=== PATIENT | male | born 1935 | race Caucasian/White ===

== ENCOUNTER 2019-11-09 15:46 | Inpatient (IN) | payer MEDICARE ==
[~2019-11-09] VITALS: Ht 175.3 cm; Wt 93.4 kg
[2019-11-09] MEDS ORDERED: MORPHINE SULFATE 4 MG/ML, 1ML IVPush PRN (16:00)
[2019-11-09] MEDS ORDERED: SODIUM CHLORIDE FLUSH 10ML SYR IVF ONE (16:00)
[2019-11-09] MEDS ORDERED: ONDANSETRON 2MG/ML, 2ML IVPush ONE (16:00)
[2019-11-09] MEDS ORDERED: LIDOCAINE 2%,20 ML JEL.PF.APP MM ONE (16:04)
[2019-11-09] MEDS ORDERED: ONDANSETRON 2MG/ML, 2ML ONE (16:05)
[2019-11-09] MEDS ORDERED: MORPHINE SULFATE 4 MG/ML, 1ML ONE ×2 (16:05→16:31)
[2019-11-09 16:19] LABS: BASOPHILS # (AUTO) 0.04 x10^3/uL (0-0.1); BASOPHILS % (AUTO) 0 % (0-1); EOSINOPHILS % (AUTO) 1 % (1-7); LYMPHOCYTES # (AUTO) 1.26 x10^3/uL (1-3.4); LYMPHOCYTES % (AUTO) 12 % (22-44); MD NO; MEAN CORPUSCULAR HEMOGLOBIN 30.6 pg (27.5-34.5); MEAN CORPUSCULAR HGB CONC 33.2 g/dL (33.2-36.2); MEAN CORPUSCULAR VOLUME 92.3 fL (81-97); MEAN PLATELET VOLUME 9.5 fL (7.4-10.4); MONOCYTES # (AUTO) 1.26 x10^3/uL (0.2-0.8); MONOCYTES % (AUTO) 12 % (2-9); NEUTROPHILS # (AUTO) 8.34 x10^3/uL (1.8-6.8); NEUTROPHILS % (AUTO) 76 % (42-75); PLATELET COUNT 154 x10^3/uL (130-400); RED BLOOD COUNT 3.99 x10^6/uL (4.38-5.82); RED CELL DISTRIBUTION WIDTH 13.3 % (9.4-14.8)
[2019-11-09 16:31] LABS: ALANINE AMINOTRANSFERASE 14 U/L (12-78); ALBUMIN 3.1 g/dL (3.4-5.0); ANION GAP 7 mmol/L (5-15); CALCIUM 7.1 mg/dL (8.5-10.1); CHLORIDE 109 mmol/L (98-107); CREATININE 1.66 mg/dL (0.7-1.3)
[2019-11-09 16:34] LABS: ALKALINE PHOSPHATASE 61 U/L (45-117); BILIRUBIN,TOTAL 0.7 mg/dL (0.2-1.0); TOTAL PROTEIN 7.4 g/dL (6.4-8.2)
[2019-11-09 17:03] LABS: MICROSCOPIC AUTO
[2019-11-09] MEDS ORDERED: HYDR-3246 PO (17:04)
[2019-11-09] MEDS ORDERED: LUBI24CA7 PO (17:05)
[2019-11-09] MEDS ORDERED: AMLO10TA8 PO (17:07)
[2019-11-09] MEDS ORDERED: CALC0.25 PO (17:08)
[2019-11-09] MEDS ORDERED: CITA10TA8 PO (17:12)
[2019-11-09] MEDS ORDERED: CALC600T23 PO (17:12)
[2019-11-09] MEDS ORDERED: DOCU60SY5 PO (17:13)
[2019-11-09] MEDS ORDERED: LINA290C PO (17:15)
[2019-11-09] MEDS ORDERED: NALO25TA PO (17:15)
[2019-11-09] MEDS ORDERED: LINACLOTIDE HOMEMEDPO PRN (17:30)
[2019-11-09] MEDS ORDERED: SODIUM CHLORIDE FLUSH 10ML SYR IVF PRN (17:30)
[2019-11-09] MEDS ORDERED: LUBIPROSTONE 24 MCG CAPSULE PO PRN (17:30)
--- NOTE | 2019-11-09 17:45 | NUR ---
LUIS EDUARDO LUEVANO, , IS PATIENT'S SON AND POWER OF CASE CHECKER, AND WISHES TO BE KEPT INFORMED.
[2019-11-09] MEDS ORDERED: hydrALAzine 20 MG/ML, 1ML IVPush PRN (18:00)
[2019-11-09] MEDS ORDERED: DIPHENHYDRAMINE 50 MG CAPSULE PO PRN (18:00)
[2019-11-09] MEDS ORDERED: ONDANSETRON 2MG/ML, 2ML IVPush PRN (18:00)
[2019-11-09] MEDS ORDERED: POLYETHYLENE GLYCOL 17 GM PACKET PO PRN (18:00)
[2019-11-09] MEDS ORDERED: BISACODYL 10 MG SUPP PR PRN (18:00)
[2019-11-09] MEDS ORDERED: ACETAMINOPHEN 325 MG TABLET PO PRN (18:00)
[2019-11-09] MEDS ORDERED: PROMETHAZINE 25 MG/ML, 1ML IM PRN (18:00)
[2019-11-09] MEDS ORDERED: MELATONIN 5 MG TABLET PO PRN (18:00)
--- NOTE | 2019-11-09 18:04 | NUR ---
[facility] HAND-OFF REPORT GIVEN TO BAL FOURNIER. PATIENT READY TO GO TO HOSPITAL ROOM.
[2019-11-09 19:08] VITALS: BP 155/81
[2019-11-09] MEDS: LUBIPROSTONE MC SCH (19:30)
[2019-11-09] MEDS: LINACLOTIDE MC SCH (19:30)
[2019-11-09] MEDS: NALOXEGOL MC SCH (19:30)
[2019-11-09] MEDS: DOCUSATE 100 MG CAPSULE PO SCH (20:04)
[2019-11-09] MEDS: CALCITRIOL 0.25 MCG CAPSULE PO SCH (20:04)
[2019-11-09] MEDS: TEMPLATE NON-FORMULARY MED. (Naloxegol Oxalate (Movantik) 25 MG) HOMEMEDPO SCH (21:00)
[2019-11-10 00:57] VITALS: BP 163/72
[2019-11-10] MEDS: HYDROmorphone 2 MG/ML, 1ML IVPush PRN ×5 (01:09→20:11)
[2019-11-10] MEDS: LACTATED RINGERS 1,000 ML IV SCH (01:56)
[2019-11-10] MEDS: LINACLOTIDE MC SCH ×3 (03:30→19:30)
[2019-11-10] MEDS: LUBIPROSTONE MC SCH ×3 (03:30→19:30)
[2019-11-10] MEDS: NALOXEGOL MC SCH ×3 (03:30→19:30)
[2019-11-10 04:32] LABS: BASOPHILS # (AUTO) 0.02 x10^3/uL (0-0.1); BASOPHILS % (AUTO) 0 % (0-1); EOSINOPHILS # (AUTO) 0.07 x10^3/uL (0-0.4); EOSINOPHILS % (AUTO) 1 % (1-7); LYMPHOCYTES # (AUTO) 1.14 x10^3/uL (1-3.4); LYMPHOCYTES % (AUTO) 11 % (22-44); MD NO; MEAN CORPUSCULAR HEMOGLOBIN 30.2 pg (27.5-34.5); MEAN CORPUSCULAR HGB CONC 32.6 g/dL (33.2-36.2); MEAN CORPUSCULAR VOLUME 92.7 fL (81-97); MEAN PLATELET VOLUME 9.6 fL (7.4-10.4); MONOCYTES % (AUTO) 11 % (2-9); NEUTROPHILS % (AUTO) 77 % (42-75); PLATELET COUNT 159 x10^3/uL (130-400); RED BLOOD COUNT 3.83 x10^6/uL (4.38-5.82); RED CELL DISTRIBUTION WIDTH 13.3 % (9.4-14.8)
[2019-11-10 04:40] LABS: ANION GAP 7 mmol/L (5-15); CALCIUM 6.7 mg/dL (8.5-10.1); CHLORIDE 109 mmol/L (98-107)
[2019-11-10 04:41] LABS: CREATININE 1.66 mg/dL (0.7-1.3)
[2019-11-10] MEDS: CEFTRIAXONE PMX 1GM/50ML 50 ML IV SCH (06:37)
[2019-11-10 06:57] VITALS: BP 147/64
[2019-11-10] MEDS: CITALOPRAM 10 MG TABLET PO SCH (09:00)
[2019-11-10] MEDS: CALCITRIOL 0.25 MCG CAPSULE PO SCH ×2 (09:00→20:11)
[2019-11-10] MEDS: DOCUSATE 100 MG CAPSULE PO SCH ×2 (09:00→20:13)
[2019-11-10] MEDS: SENNA/DOCUSATE TABLET PO SCH (09:00)
[2019-11-10] MEDS: TEMPLATE NON-FORMULARY MED. (Naloxegol Oxalate (Movantik) 25 MG) HOMEMEDPO SCH ×2 (09:00→20:14)
[2019-11-10] MEDS: AMLODIPINE 10 MG TAB PO SCH (09:00)
[2019-11-10] MEDS ORDERED: CHLORHEXIDINE 15 ML UDC ONE (12:22)
[2019-11-10] MEDS ORDERED: CHLORHEXIDINE 15 ML UDC MM STA (12:24)
[2019-11-10] MEDS ORDERED: FENTANYL PF 250 MCG/5ML ONE (12:47)
[2019-11-10] MEDS ORDERED: PHENYLEPHRINE 10 MG/ML ONE (12:55)
[2019-11-10] MEDS ORDERED: ONDANSETRON 2MG/ML, 2ML IVPush PRN (13:00)
[2019-11-10] MEDS ORDERED: hydrALAzine 20 MG/ML, 1ML IV PRN (13:00)
[2019-11-10] MEDS ORDERED: LABETALOL 5MG/ML, 20ML IV PRN (13:00)
[2019-11-10] MEDS ORDERED: FENTANYL PF 100 MCG/2ML IV PRN (13:00)
[2019-11-10] MEDS ORDERED: ACETAMINOPHEN 325 MG TABLET PO PRN (13:00)
[2019-11-10] MEDS ORDERED: OXYcodone 5 MG/5 ML ORAL.SOL UDC PO PRN (13:00)
[2019-11-10] MEDS ORDERED: PROMETHAZINE 25 MG/ML, 1ML IVPush PRN (13:00)
[2019-11-10] MEDS ORDERED: morphine SULFATE 10 MG/ML, 1ML IVPush PRN (13:00)
[2019-11-10] MEDS ORDERED: DEXAMETHASONE 4 MG/ML, 1ML ONE (13:25)
[2019-11-10] MEDS ORDERED: ONDANSETRON 2MG/ML, 2ML ONE (13:25)
[2019-11-10] MEDS ORDERED: PROPOFOL 10 MG/ML, 20ML ONE (13:25)
[2019-11-10] MEDS ORDERED: OMNIPAQUE 350 MG/ML, 50 ML BOTTLE ONE ×2 (14:00→14:11)
[2019-11-10] MEDS ORDERED: MORPHINE SULFATE 4 MG/ML, 1ML ONE (14:51)
[2019-11-10 15:47] VITALS: BP 186/71
[2019-11-10 20:04] VITALS: BP 145/69
[2019-11-10] MEDS: OXYcodone IR 5MG TABLET PO PRN (22:23)
[2019-11-10 23:25] VITALS: BP 148/66
[2019-11-11] MEDS: LACTATED RINGERS 1,000 ML IV SCH (02:46)
[2019-11-11] MEDS: HYDROmorphone 2 MG/ML, 1ML IVPush PRN ×2 (02:51→06:38)
[2019-11-11] MEDS: LUBIPROSTONE MC SCH ×2 (03:30→11:30)
[2019-11-11] MEDS: LINACLOTIDE MC SCH ×2 (03:30→11:30)
[2019-11-11] MEDS: NALOXEGOL MC SCH ×2 (03:30→11:30)
[2019-11-11 04:06] VITALS: BP 123/61
[2019-11-11] MEDS: CEFTRIAXONE PMX 1GM/50ML 50 ML IV SCH (06:36)
[2019-11-11 06:50] VITALS: BP 119/63
[2019-11-11] MEDS: TEMPLATE NON-FORMULARY MED. (Naloxegol Oxalate (Movantik) 25 MG) HOMEMEDPO SCH (08:20)
[2019-11-11] MEDS: AMLODIPINE 10 MG TAB PO SCH (08:21)
[2019-11-11] MEDS: CITALOPRAM 10 MG TABLET PO SCH (08:21)
[2019-11-11] MEDS: CALCITRIOL 0.25 MCG CAPSULE PO SCH (08:21)
[2019-11-11] MEDS: SENNA/DOCUSATE TABLET PO SCH (08:21)
[2019-11-11] MEDS: DOCUSATE 100 MG CAPSULE PO SCH (08:21)
[2019-11-11] MEDS ORDERED: HYDR-3246 PO (10:32)
[2019-11-11] MEDS ORDERED: CEFD300C37 PO (10:32)
[2019-11-11] MEDS: OXYcodone IR 5MG TABLET PO PRN (13:43)
[2019-11-11 13:45] VITALS: BP 160/71
[2019-11-11 15:34] VITALS: BP 148/68
== END 2019-11-11 15:35 | disposition home or self-care (01) | DRG 660 ==
LOC: ED 16:34 → EDIP 17:12 → 4NE 18:31
PROVIDERS: ADMIT Hospitalist; ATTEND Hospitalist
PROC: 0TC78ZZ Extirpation of Matter from Left Ureter, Via Natural or Artificial Opening Endoscopic (ICD-10-PCS; 2019-11-10)
PROC: 0T778DZ Dilation of Left Ureter with Intraluminal Device, Via Natural or Artificial Opening Endoscopic (ICD-10-PCS; principal; 2019-11-10 13:00)
DX: N13.2 Hydronephrosis with renal and ureteral calculous obstruction (principal); N13.8 Other obstructive and reflux uropathy; E44.1 Mild protein-calorie malnutrition; N17.9 Acute kidney failure, unspecified; Z20.828 Contact with and (suspected) exposure to other viral communicable diseases; I10 Essential (primary) hypertension; G89.29 Other chronic pain; M54.9 Dorsalgia, unspecified; F32.9 Major depressive disorder, single episode, unspecified; F41.9 Anxiety disorder, unspecified; E83.51 Hypocalcemia; D72.829 Elevated white blood cell count, unspecified; R73.9 Hyperglycemia, unspecified; Z79.899 Other long term (current) drug therapy; Z88.0 Allergy status to penicillin; Z68.30 Body mass index [BMI] 30.0-30.9, adult
CPT/HCPCS: 36415; 74420; 80048; 80053; 81001; 82306; 82330; 82360; 84100; 85025; 87635; 88300; 93005; G0378; J0696; J1100; J1170; J2405; J2704; J3010; Q9967; C1758; C1769; C2617; J0360; J2270; J2370; J7120